=== PATIENT | female | born 1950 | race Hispanic/Latino ===

== ENCOUNTER 2024-08-12 13:22 | Emergency (ER) | payer SELFPAY ==
[2024-08-12 13:38] VITALS: BP 142/50; PULSE 80; RESP 16; TEMP 36.6; O2SAT 95
[2024-08-12 13:48] LABS: Glucose Point of Care 374 mg/dl (65-105)
--- NOTE | 2024-08-12 13:57 | ED.GENADULT ---
HPI - General Adult General Chief complaint: Unspecified Stated complaint: High Glucose Time Seen by Provider: 08/12/24 13:57 Source: patient, RN notes reviewed, old records reviewed and group work program director Mode of arrival: ambulatory Limitations: no limitations History of Present Illness HPI narrative: 74-year-old female presents to the [facility] with family. History of hypertension and diabetes. Reports using insulin, 20 units approximately 1:00 p.m. Unsure of what type of insulin. Family member reports through the group work program director service that she has had a decreased appetite, increased sleeping. Uncontrolled blood sugars consistently in the 300s since . Reports intermittent headaches. In clinic blood sugar is 374 Onset (ago): day(s) (4) Related Data Home Medications Medication Instructions Recorded Confirmed Last Taken Type Unable to Obtain Home Medications 08/12/24 08/12/24 Unknown History Review of Systems Review of Systems: All systems reviewed & are unremarkable except as noted in HPI and below Constitutional: Constitutional: Reports as per HPI, Reports body ache(s), Reports fatigue, Reports headache(s), Reports lethargy and Reports poor appetite ENT: Reports system reviewed and no additional complaints, except as documented Cardiovascular: Cardiovascular: Reports no additional cardiovascular complaints, Denies chest pain and Denies dyspnea Respiratory: Respiratory: Reports no additional respiratory complaints, Denies chest congestion, Denies cough and Denies dyspnea Gastrointestinal: Gastrointestinal: Reports as per HPI, Reports abdominal pain, Reports diarrhea, Reports nausea and Reports vomiting Genitourinary: Genitourinary: Reports no additional female genitourinary complaints Musculoskeletal: Musculoskeletal: Reports no additional musculoskeletal complaints Integumentary/Breasts: Skin/Breast: Reports system reviewed and no additional complaints, except as docu PMFSH Past Medical History Medical History (Updated 08/12/24 @ 14:19 by Jeannette Garcia APRN) Diabetes Hypertension Comments At the time of my signature, I reviewed and agree with the nursing past medical, surgical, social, and family history. There is no relevant family history pertinent to the patient complaint. Exam Const: General: cooperative, no acute distress, well developed, alert, ill appearing chronically, uncomfortable and well nourished Nutritional Appearance: well nourished Orientation/consciousness: patient oriented x3 Limitations: no limitations HENMT: Head: normal to inspection Eyes: General: appearance normal, both eyes and all related structures Alignment and Position: alignment normal Neck: Neck: normal visual inspection, full ROM, no lymphadenopathy and no meningeal signs Chest: Chest palpation & inspection: normal inspection of the chest Resp: Effort & Inspection: normal respiratory effort and able to speak in complete sentences Auscultation: clear to auscultation bilaterally, no crackles, no rales, no rhonchi and no wheezes Cardio: Rate: regular rate GI: GI Palp: Yes abdominal tenderness Auscultation: Hypoactive bowel sounds present : General: Yes no CVA tenderness Skin: General skin exam: normal color and no rashes or lesions noted Neuro: General: patient oriented x3, gait normal, moves all extremities and no meningeal signs Cognition (Neuro): normal cognition Speech: normal speech Gait exam (Neuro): Normal gait present Extrem: General: normal to inspection, full ROM, capillary refill normal and normal gait Psych: Appearance: grossly normal and well kempt Mental Status: mental status grossly normal Speech and movement: Normal speech and movement present and Clear speech present Affect: normal affect Attitude: cooperative Course Course Level of Care: Express Care Visit Vital Signs Vital signs: Vital Signs Temperature 97.8 F 08/12/24 13:38 Pulse Rate 80 08/12/24 13:38 Respiratory Rate 16 08/12/24 13:38 Blood Pressure 142/50 H 08/12/24 13:38 Pulse Oximetry 95 08/12/24 13:38 Oxygen Delivery Room Air 08/12/24 13:38 Temperature 97.8 F 08/12/24 13:38 Pulse Rate 80 08/12/24 13:38 Respiratory Rate 16 08/12/24 13:38 Blood Pressure 142/50 H 08/12/24 13:38 Pulse Oximetry 95 08/12/24 13:38 Oxygen Delivery Room Air 08/12/24 13:38 Reviewed Transfer Transfered to: [facility] Transportation: Other (POC per patient family request) Transfer rationale: Patient with 4 day history of abdominal pain, nausea vomiting diarrhea as well as elevated blood sugars sending for higher level of care Accepting physician: Spoke with Dr Nolen Medical Decision Making [facility] Narrative Medical decision making narrative: Patient sitting in exam room. Patient is uncomfortable in appearance. Blood sugar elevated, blood pressure mildly elevated. Four day history of abdominal pain. Patient is chronically ill in appearance. Patient with abdominal pain on palpation sending for higher level of care Transfer instructions reviewed via machine setup operator with patient and daughter in-law. Go directly to the ER. Do not eat or drink. EMS was offered, they declined All questions have been answered, and the patient deny any further questions. Some parts of this dictation were generated by voice recognition software and may contain typographical and/or grammatical inaccuracies. Differential Diagnosis Differential Diagnosis: DKA, gastroenteritis, pancreatitis, kidney disease. CHF Medical Records Medical records reviewed: Yes I reviewed the external patient's medical records. Vital Signs Vital Signs: Vital Signs Temperature 97.8 F 08/12/24 13:38 Pulse Rate 80 08/12/24 13:38 Respiratory Rate 16 08/12/24 13:38 Blood Pressure 142/50 H 08/12/24 13:38 Pulse Oximetry 95 08/12/24 13:38 Oxygen Delivery Room Air 08/12/24 13:38 Temperature 97.8 F 08/12/24 13:38 Pulse Rate 80 08/12/24 13:38 Respiratory Rate 16 08/12/24 13:38 Blood Pressure 142/50 H 08/12/24 13:38 Pulse Oximetry 95 08/12/24 13:38 Oxygen Delivery Room Air 08/12/24 13:38 Reviewed Lab Data Lab results reviewed: Yes I reviewed the patient's lab results. Labs: Lab Results 08/12/24 Range/Units 13:46 POC Capillary Glucose 374 H (65-105) mg/dl Reviewed Critical Care Time Critical Care Time Critical Care Time: No Discharge Plan Discharge Clinical Impression: Abdominal pain, Elevated blood sugar Patient Disposition: Acute Care Hospital Condition: Stable Patient Language: Amharic Follow-up/Referrals: UNKNOWN,DOCTOR [Primary Care Provider] -
== END 2024-08-12 14:11 | disposition short-term general hospital (02) ==
PROVIDERS: Emergency Provider Nurse Practitioner
DX: R10.9 Unspecified abdominal pain (principal); E11.65 Type 2 diabetes mellitus with hyperglycemia; I10 Essential (primary) hypertension
CPT/HCPCS: 82948; 99202; G0463

== ENCOUNTER 2024-08-12 14:43 | Emergency (ER) | payer SELFPAY ==
--- NOTE | ~2024-08-12 | CT_ITS ---
EXAMINATION: CT abdomen pelvis w con DATE: 08/12/2024 18:22 INDICATION: mild LFT elevations; low abd/pelvic pain TECHNIQUE: Computed tomography (CT) of the abdomen and pelvis was performed with 100 mL Omnipaque-350 intravenous contrast. Automated exposure control and iterative reconstruction technique were employe d. The dose-length product was 577.26 mGy-cm. COMPARISON: None. FINDINGS: Lower thorax: 5 mm peripheral right middle lobe nodule. Coronary artery calcifications. Liver: Mildly enlarged. Mild diffuse fatty infiltration Biliary/Gallbladder: Gallbladder is normal. No bile duct dilation. Pancreas: No mass or duct dilation. Spleen: Subcentimeter hypodensity, too small to characterize, likely cyst or hemangioma. Adrenals:No mass. Kidneys: No suspicious mass, obstructing stone, or hydronephrosis. Ill-defined area of patchy hypoenh ancement in the right mid and upper poles. GI tract: Small hiatal hernia. Mild distal esophageal and gastric wall edema. No small or large bowel dilation. Normal appendix. Diverticulosis without diverticulitis. Mesentery/Peritoneum: No ascites, mass, or free air. Retroperitoneum: No mass. Atherosclerotic calcifications of intra-abdominal arterial vessels. Pelvis: Mild urinary bladder wall thickening. Normal uterus and bilateral ovaries. Soft Tissues: Small fat-containing uncomplicated appearing umbilical hernia. Bones: No acute osseous finding. Chronic-appearing burst fracture at T12, with minimal retropulsion. IMPRESSION: 5 mm peripheral right middle lobe nodule. Recommend comparison to outside studies if available. Other suarez recommend nonemergent, outpatient low-dose noncontrast CT of the chest for further evaluation. Mild esophagitis/gastritis. Mild hepatomegaly and steatosis. Patchy right renal enhancement as can be seen with pyelonephritis. Possible cystitis. Reviewed, dictated and finalized at location K. IMPRESSION: 5 mm peripheral right middle lobe nodule. Recommend comparison to outside studi es if available. Otherwise recommend nonemergent, outpatient low-dose noncontra st CT of the chest for further evaluation. Mild esophagitis/gastritis. Mild hepatomegaly and steatosis. Patchy right renal enhancement as can be seen with pyelonephritis. Possible cys titis.
[2024-08-12 14:48] VITALS: BP 136/72; PULSE 72; RESP 16; TEMP 36.1; O2SAT 96
--- NOTE | 2024-08-12 15:07 | ED.ABDPAIN ---
HPI - Abdominal Pain General Chief Complaint: Abdominal Pain <Genna Marie PA-C - Last Filed: 08/14/24 17:56> Stated Complaint: BGL 344, abd pain sent by <Genna Marie PA-C - Last Filed: 08/14/24 17:56> Time Seen by Provider: 08/12/24 15:07 <Genna Marie PA-C - Last Filed: 08/14/24 17:56> Focused HPI: This is a 74 year old female that presents to the ER for elevated blood sugar readings. Reports abdominal pain and headaches. Reports nausea and vomiting. Denies fever, dysuria. GENERAL: Elderly, well-nourished, and in no acute distress. HEAD: Normocephalic, atraumatic. CHEST: Clear to auscultation. No respiratory distress. HEART: Regular rate and rhythm. NEURO: Alert and oriented x3. Patient screened in triage and initial orders placed. Additional care and disposition to be based upon diagnostic testing and treatment. <Genna Marie PA-C - Last Filed: 08/14/24 17:56> Source: patient and family (Daughter) <Mily Nolen MD - Last Filed: 08/12/24 20:08> Mode of arrival: ambulatory <Mily Nolen MD - Last Filed: 08/12/24 20:08> Limitations: language barrier (Nigerien speaking (no Indonesian); right of way clearer Trini #[id number]) <Mily Nolen MD - Last Filed: 08/12/24 20:08> History of Present Illness HPI narrative: Agree with the above with the following additions/corrections: Patient been having low abdominal pain and feeling bloated. She has been incontinent of urine initially requiring a brief QHS but now being used throughout the day as precaution. She has been feeling weak but thirsty. She is initially seen at urgent care and I had received history from them earlier in the day. Patient is on medication for hypertension she is also on insulin which he takes 20 units in the morning and 20 units in the afternoon. Her last dose was taken this afternoon between 12 30 and 1:00 p.m.. She has had decreased p.o. intake. She is visiting from [place] and is due to go back August 24, 2024. No previous abdominal surgeries. Denies any fevers or chills. Her last bowel movement was today and she denies any diarrhea constipation or bloody stools. No vaginal discharge or bleeding. She had 2 episodes of nonbloody emesis 2 days ago and yesterday was nauseated. Her last oral intake was yesterday evening. Does not currently have an appetite. No sick contacts. <Mily Nolen MD - Last Filed: 08/12/24 20:08> Related Data Allergies/Adverse Reactions: Allergies Allergy/AdvReac Type Severity Reaction Status Date / Time No Known Allergies Allergy Verified 08/12/24 14:44 <Genna Marie PA-C - Last Filed: 08/14/24 17:56> Review of Systems Review of Systems: All systems reviewed & are unremarkable except as noted in HPI and below <Genna Marie PA-C - Last Filed: 08/14/24 17:56> [facility] Past Medical History Medical History: Medical History Insulin dependent diabetes mellitus Hypertension <Genna Marie PA-C - Last Filed: 08/14/24 17:56> Social History Social History: Social History Social History: Nigerien speaking Additional living arrangements comments: in [place] <Genna Marie PA-C - Last Filed: 08/14/24 17:56> Exam Narrative: GENERAL: well-nourished, and in no acute distress. HEAD: Normocephalic, atraumatic. EYES: Non injected, non icteric ENT: Nares clear, no rhinorrhea or epistaxis. NECK: Supple. CHEST: No respiratory distress. HEART: Regular rate and rhythm. . ABDOMEN: Soft, nondistended. Mild suprapubic tenderness to palpation but otherwise is not elsewhere throughout abdomen. No rigidity or guarding. Not peritoneal. EXTREMITIES: Normal range of motion. No lower extremity edema. SKIN: Warm, dry, no rash. NEURO: No focal deficits. Alert and oriented . PSYCH: Normal mood and affect. <Mily Nolen MD - Last Filed: 08/12/24 20:08> Course Vital Signs Vital signs: Vital Signs Temperature 97.0 F L 08/12/24 14:48 Pulse Rate 72 08/12/24 14:48 Respiratory Rate 16 08/12/24 14:48 Blood Pressure 136/72 08/12/24 14:48 Pulse Oximetry 96 08/12/24 14:48 Temperature 97.0 F L 08/12/24 14:48 Pulse Rate 83 08/12/24 20:00 Respiratory Rate 20 08/12/24 20:00 Blood Pressure 166/89 H 08/12/24 20:00 Pulse Oximetry 95 08/12/24 20:00 <Genna Marie PA-C - Last Filed: 08/14/24 17:56> Vital Signs Temperature 97.0 F L 08/12/24 14:48 Pulse Rate 72 08/12/24 14:48 Respiratory Rate 16 08/12/24 14:48 Blood Pressure 136/72 08/12/24 14:48 Pulse Oximetry 96 08/12/24 14:48 Temperature 97.0 F L 08/12/24 14:48 Pulse Rate 83 08/12/24 20:00 Respiratory Rate 20 08/12/24 20:00 Blood Pressure 166/89 H 08/12/24 20:00 Pulse Oximetry 95 08/12/24 20:00 <Mily Nolen MD - Last Filed: 08/12/24 20:08> MDM - Abdominal Pain MDM Narrative Medical decision making narrative: In the emergency department she is afebrile with vital signs within normal limits. Hyperglycemia is without anion gap acidosis. 1 L IV fluids ordered for this as well as the fact that patient has an elevated creatinine with no prior for comparison, likely due to DUNCAN though CKD (especially given underlying diabetes mellitus) not excluded. Mild AST and ALT elevations. Patient is hypokalemic. Oral repletion ordered. Pseudo hyponatremia (138/141) as it corrects to normal in the setting of hyperglycemia. She has evidence of your urinary tract infection. Ceftriaxone ordered initially. Leukocytosis. CT as below. Discussed the results of patient's workup with patient and daughter at bedside using interpretive services, Vick # [id number]. Stress the importance of maintaining hydration, taking rest the course of antibiotics, and good glycemic control. Informed about the incidental pulmonary nodule. Patient has tolerated p.o.. Discussed the possibility of admission but patient and daughter feel comfortable confident that she can be discharged on oral antibiotics. Advised to return if any new worsening or unmanaged symptoms. Stable for discharge. <Mily Nolen MD - Last Filed: 08/12/24 20:08> Differential Diagnosis Differential diagnosis: Likely abdominal pain, constipation, pancreatitis and other (Hyperglycemia, DKA, HHS; intra-abdominal/intrauterine infection) <Mily Nolen MD - Last Filed: 08/12/24 20:08> Lab Data Attestation: I reviewed the patient's lab results. <Mily Nolen MD - Last Filed: 08/12/24 20:08> Lab results narrative: Viral panel negative <Mily Nolen MD - Last Filed: 08/12/24 20:08> Result diagrams: 08/12/24 16:23 08/12/24 16:23 <Genna Marie PA-C - Last Filed: 08/14/24 17:56> Labs: Lab Results 08/12/24 08/12/24 Range/Units 16:23 18:03 WBC 16.3 H (4.5-10.0) K/mm3 RBC 4.79 (4.2-5.4) M/mm3 Hgb 13.9 (12.0-15.0) g/dL Hct 40.7 (37.0-47.0) % MCV 85.0 (80-100) fl MCH 29.0 (26-34) pg MCHC 34.2 (32-36) g/dl RDW 12.5 (11.5-14.5) % Plt Count 193 (150-375) k/mm3 MPV 11.7 H (7.4-10.4) fl Immature Gran % (Auto) Not Reportable Neut % (Auto) Not Reportable Lymph % (Auto) Not Reportable [place] % (Auto) Not Reportable Eos % (Auto) Not Reportable Baso % (Auto) Not Reportable Lymph # (Auto) Not Reportable [place] # (Auto) Not Reportable Eos # (Auto) Not Reportable Baso # (Auto) Not Reportable Abs Immat Gran (auto) Not Reportable Absolute Neuts (auto) Not Reportable Absolute Nucleated RBC Not Reportable Total Counted 100 Neutrophils % (Manual) 89 H (46-73) % Band Neutrophils % 5 (0-6) % Lymphocytes % (Manual) 3.0 L (18-44) % Monocytes % (Manual) 3 (3-9) % Nucleated RBC % Not Reportable Abs Neuts (Manual) 15.32 H (1.7-7.2) K/mm3 Abs Lymphs (Manual) 0.48 L (1.1-4.5) K/mm3 Abs Monocytes (Manual) 0.48 (0.1-0.90) K/mm3 Platelet Estimate Adequate (Adequate) Schistocytes None seen Sodium 134 L (137-145) mmol/L Potassium 3.1 L (3.4-5.0) mmol/L Chloride 91 L (98-107) mmol/L Carbon Dioxide 31 H (22-30) mmol/L Anion Gap 12 (4-12) mmol/L BUN 45 H (7-17) mg/dL Creatinine 1.19 H (0.7-1.0) mg/dL Estim Creat Clear Calc Not Reportable Estimated GFR 44 L (59 - ) Glucose 371 H (65-110) mg/dL Calcium 8.9 (8.4-10.2) mg/dL Magnesium 2.2 (1.6-2.3) mg/dL Total Bilirubin 1.2 (0.2-1.3) mg/dL AST 42 H (14-36) U/L ALT 39 H (6-35) U/L Alkaline Phosphatase 123 (38-126) U/L Total Protein 7.0 (6.3-8.2) g/dL Albumin 3.5 (3.5-5.1) g/dL Lipase 25 (23-300) U/L Urine Color Yellow (Yellow) Urine Appearance Turbid H (Clear) Urine pH 5.5 (5.0-9.0) Ur Specific [place] 1.017 (1.001-1.035) Urine Protein 2+ H (Negative) mg/dL Urine Glucose (UA) 1+ H (Negative) mg/dL Urine Ketones 1+ H (Negative) mg/dL Ur Blood (Man) 1+ H (Negative) Urine Nitrate Negative (Negative) Urine Bilirubin Negative (Negative) Urine Urobilinogen 1.0 (<2.0) mg/dL Leukocyte Esterase Rfl 3+ H (Negative) AMY/UL Urine RBC 0-2 (0-2) /hpf Urine WBC >100 H (0-3) /hpf Ur Squamous Epith Cells Few (Few) /hpf Urine Bacteria 4+ H /hpf Urine Casts 3-5 Influenza A (RT-PCR) Negative (Negative) Influenza B (RT-PCR) Negative (Negative) SARS-CoV-2 RNA (RT-PCR) Negative (Negative) <Genna Marie PA-C - Last Filed: 08/14/24 17:56> Lab Results 08/12/24 08/12/24 Range/Units 16:23 18:03 WBC 16.3 H (4.5-10.0) K/mm3 RBC 4.79 (4.2-5.4) M/mm3 Hgb 13.9 (12.0-15.0) g/dL Hct 40.7 (37.0-47.0) % MCV 85.0 (80-100) fl MCH 29.0 (26-34) pg MCHC 34.2 (32-36) g/dl RDW 12.5 (11.5-14.5) % Plt Count 193 (150-375) k/mm3 MPV 11.7 H (7.4-10.4) fl Immature Gran % (Auto) Not Reportable Neut % (Auto) Not Reportable Lymph % (Auto) Not Reportable [place] % (Auto) Not Reportable Eos % (Auto) Not Reportable Baso % (Auto) Not Reportable Lymph # (Auto) Not Reportable [place] # (Auto) Not Reportable Eos # (Auto) Not Reportable Baso # (Auto) Not Reportable Abs Immat Gran (auto) Not Reportable Absolute Neuts (auto) Not Reportable Absolute Nucleated RBC Not Reportable Total Counted 100 Neutrophils % (Manual) 89 H (46-73) % Band Neutrophils % 5 (0-6) % Lymphocytes % (Manual) 3.0 L (18-44) % Monocytes % (Manual) 3 (3-9) % Nucleated RBC % Not Reportable Abs Neuts (Manual) 15.32 H (1.7-7.2) K/mm3 Abs Lymphs (Manual) 0.48 L (1.1-4.5) K/mm3 Abs Monocytes (Manual) 0.48 (0.1-0.90) K/mm3 Platelet Estimate Adequate (Adequate) Schistocytes None seen Sodium 134 L (137-145) mmol/L Potassium 3.1 L (3.4-5.0) mmol/L Chloride 91 L (98-107) mmol/L Carbon Dioxide 31 H (22-30) mmol/L Anion Gap 12 (4-12) mmol/L BUN 45 H (7-17) mg/dL Creatinine 1.19 H (0.7-1.0) mg/dL Estim Creat Clear Calc Not Reportable Estimated GFR 44 L (59 - ) Glucose 371 H (65-110) mg/dL Calcium 8.9 (8.4-10.2) mg/dL Magnesium 2.2 (1.6-2.3) mg/dL Total Bilirubin 1.2 (0.2-1.3) mg/dL AST 42 H (14-36) U/L ALT 39 H (6-35) U/L Alkaline Phosphatase 123 (38-126) U/L Total Protein 7.0 (6.3-8.2) g/dL Albumin 3.5 (3.5-5.1) g/dL Lipase 25 (23-300) U/L Urine Color Yellow (Yellow) Urine Appearance Turbid H (Clear) Urine pH 5.5 (5.0-9.0) Ur Specific [place] 1.017 (1.001-1.035) Urine Protein 2+ H (Negative) mg/dL Urine Glucose (UA) 1+ H (Negative) mg/dL Urine Ketones 1+ H (Negative) mg/dL Ur Blood (Man) 1+ H (Negative) Urine Nitrate Negative (Negative) Urine Bilirubin Negative (Negative) Urine Urobilinogen 1.0 (<2.0) mg/dL Leukocyte Esterase Rfl 3+ H (Negative) AMY/UL Urine RBC 0-2 (0-2) /hpf Urine WBC >100 H (0-3) /hpf Ur Squamous Epith Cells Few (Few) /hpf Urine Bacteria 4+ H /hpf Urine Casts 3-5 Influenza A (RT-PCR) Negative (Negative) Influenza B (RT-PCR) Negative (Negative) SARS-CoV-2 RNA (RT-PCR) Negative (Negative) <Mily Nolen MD - Last Filed: 08/12/24 20:08> Imaging Data Radiologist's impression: ITS Impressions Abdomen/Pelvis CT 08/12/24 18:30 IMPRESSION: 5 mm peripheral right middle lobe nodule. Recommend comparison to outside studies if available. Otherwise recommend nonemergent, outpatient low-dose noncontrast CT of the chest for further evaluation. Mild esophagitis/gastritis. Mild hepatomegaly and steatosis. Patchy right renal enhancement as can be seen with pyelonephritis. Possible cystitis. <Genna Marie PA-C - Last Filed: 08/14/24 17:56> ITS Impressions Abdomen/Pelvis CT 08/12/24 18:30 IMPRESSION: 5 mm peripheral right middle lobe nodule. Recommend comparison to outside studies if available. Otherwise recommend nonemergent, outpatient low-dose noncontrast CT of the chest for further evaluation. Mild esophagitis/gastritis. Mild hepatomegaly and steatosis. Patchy right renal enhancement as can be seen with pyelonephritis. Possible cystitis. <Mily Nolen MD - Last Filed: 08/12/24 20:08> Critical Care Time Critical Care Time Critical Care Time: No <Genna Marie PA-C - Last Filed: 08/14/24 17:56> Discharge Plan Discharge Clinical Impression: Hyperglycemia due to diabetes mellitus, Elevated AST (SGOT), ALT (SGPT) level raised, DUNCAN (acute kidney injury), Abdominal pain in female, Hypokalemia, Pseudohyponatremia, Right middle lobe pulmonary nodule, Esophagitis with gastritis, Hepatomegaly, Hepatic steatosis, Pyelonephritis UTI (urinary tract infection) Qualifiers: Urinary tract infection type: acute cystitis Hematuria presence: without hematuria Qualified Code(s): N30.00 - Acute cystitis without hematuria Leukocytosis Qualifiers: Leukocytosis type: unspecified Qualified Code(s): D72.829 - Elevated white blood cell count, unspecified <Genna Marie PA-C - Last Filed: 08/14/24 17:56> Patient Disposition: Home <CAMERON Dodd Last Filed: 08/14/24 17:56> Condition: Stable <CAMERON Dodd Last Filed: 08/14/24 17:56> Instructions: Antibiotic Form, Gastritis (DC), Acute Kidney Injury (DC), Urinary Tract Infection in Women (DC), Hypokalemia (ED), Kidney Infection (ED), Managing Diabetes During Sick Days (ED), Non-Alcoholic Fatty Liver Disease (ED), Pulmonary Nodules (ED), Diabetic Hyperglycemia (ED), Esophagitis (ED) <Genna Marie PA-C - Last Filed: 08/14/24 17:56> Additional Instructions: She has a urinary tract infection that appears to have traveled up and become a kidney infection. She received the first dose of antibiotic in the emergency department the rest of the course has been prescribed. The oral disintegrating tablets of Zofran can help nausea and vomiting and the omeprazole can also help with stomach issues. It is important to continue to take your medications including insulin as prescribed to manage your blood sugars for the reasons we talked about. Maintain your hydration by drinking plenty of water. You can drink Gatorade/Pedialyte if you would like. Incidentally, a pulmonary nodule was found. Recommend comparison to outside studies if available. Otherwise recommend nonemergent, outpatient low-dose noncontrast CT of the chest for further evaluation. Follow-up with your primary care physician when you return to [place]. If you end up having to remain in the country, a doctor is listed below. Return to the emergency department if new/worsening symptoms. <Genna Marie PA-C - Last Filed: 08/14/24 17:56> Patient Language: Nigerien <Genna Marie PA-C - Last Filed: 08/14/24 17:56> Prescriptions: New omeprazole 20 mg tablet,delayed release (DR/EC) 20 mg PO DAILY Qty: 14 0RF ondansetron 4 mg tablet,disintegrating 4 mg PO Q8H PRN (Reason: nausea and vomiting) Qty: 7 0RF cephalexin 500 mg capsule 500 mg PO Q6H 10 Days Qty: 40 0RF Rx Instructions: start 08/13/24 <Genna Marie PA-C - Last Filed: 08/14/24 17:56> Follow-up/Referrals: Scotty Bryson MD [Physician] - UNKNOWN,DOCTOR [Primary Care Provider] - <Genna Marie PA-C - Last Filed: 08/14/24 17:56> Time of Disposition: 19:24 <Genna Marie PA-C - Last Filed: 08/14/24 17:56> 19:24 <Mily Nolen MD - Last Filed: 08/12/24 20:08>
[2024-08-12 16:16] VITALS: PULSE 70; RESP 23
[2024-08-12 16:18] VITALS: BP 160/58; PULSE 75; RESP 27; O2SAT 94
[2024-08-12 16:31] LABS: Hematocrit 40.7 % (37.0-47.0); Hemoglobin 13.9 g/dL (12.0-15.0); Mean Corpuscular HGB Conc 34.2 g/dl (32-36); Mean Platelet Volume 11.7 fl (7.4-10.4); Platelet Count Result 193 k/mm3 (150-375); Red Blood Count 4.79 M/mm3 (4.2-5.4); Red Cell Distribution Width 12.5 % (11.5-14.5); White Blood Count 16.3 K/mm3 (4.5-10.0)
[2024-08-12 16:37] LABS: Add Urine Microscopic? YES; Appearance Urine Turbid (Clear); Bacteria Urine 4+ /hpf; Bilirubin Urine Negative (Negative); Blood Urine 1+ (Negative); Color Urine Yellow (Yellow); Glucose Urine UA 1+ mg/dL (Negative); Ketones Urine 1+ mg/dL (Negative); Leukocyte Esterase Ur 3+ LEU/UL (Negative); Nitrate Urine Negative (Negative); Protein Urine 2+ mg/dL (Negative); RBC Urine 0-2 /hpf (0-2); Specific Grav Ur 1.017 (1.001-1.035); Squamous Epithelial Cell Urine Few /hpf (Few); WBC Urine >100 /hpf (0-3); pH Urine 5.5 (5.0-9.0)
[2024-08-12 16:40] LABS: Alanine Aminotransferase 39 U/L (6-35); Albumin Level 3.5 g/dL (3.5-5.1); Alkaline Phosphatase 123 U/L (38-126); Anion Gap 12 mmol/L (4-12); Aspartate Amino Transferase 42 U/L (14-36); Bilirubin,Total 1.2 mg/dL (0.2-1.3); Blood Urea Nitrogen 45 mg/dL (7-17); Calcium 8.9 mg/dL (8.4-10.2); Carbon Dioxide 31 mmol/L (22-30); Chloride 91 mmol/L (98-107); Estimated Glomerular Filt Rate 44; Glucose 371 mg/dL (65-110); Lipase 25 U/L (23-300); Potassium 3.1 mmol/L (3.4-5.0); Sodium 134 mmol/L (137-145)
[2024-08-12 17:00] LABS: Band Neutrophils Percent 5 % (0-6); Lymphocytes Absolute Manual 0.48 K/mm3 (1.1-4.5); Monocytes Absolute Manual 0.48 K/mm3 (0.1-0.90); Monocytes Percent Manual 3 % (3-9); Neutrophils Absolute Manual 15.32 K/mm3 (1.7-7.2); Neutrophils Percent Manual 89 % (46-73); Platelet Estimate Adequate (Adequate); Total Cells Counted 100
[2024-08-12 17:01] LABS: Schistocytes None Seen
[2024-08-12] MEDS: SODIUM CHLORIDE 0.9% IV 1,000 ML 999 ML IV CONT (17:44)
[2024-08-12 17:46] VITALS: BP 145/60; PULSE 71; RESP 20; O2SAT 94
[2024-08-12] MEDS: MORPHINE SULFATE (*CRX) 2 MG/ML INJ IV PUSH (18:03)
[2024-08-12] MEDS: POTASSIUM BICARBONATE 25 MEQ TABEF 50 MEQ PO (18:06)
[2024-08-12 18:30] VITALS: BP 190/64; PULSE 80; RESP 21; O2SAT 95
[2024-08-12 18:45] LABS: Influenza A QL RT-PCR Negative (Negative); Influenza B QL RT-PCR Negative (Negative); SARS-CoV-2 RNA PCR Negative (Negative)
[2024-08-12] MEDS: PANTOPRAZOLE 40 MG TABLET PO (19:28)
[2024-08-12 20:00] VITALS: BP 166/89; PULSE 83; RESP 20; O2SAT 95
[2024-08-12 20:14] LABS: Magnesium 2.2 mg/dL (1.6-2.3)
== END 2024-08-12 20:29 | disposition home or self-care (01) ==
PROVIDERS: Physician Assistant; Emergency Provider Student in an Organized Health Care Education/Training Program
DX: E11.65 Type 2 diabetes mellitus with hyperglycemia (principal); N17.9 Acute kidney failure, unspecified; N12 Tubulo-interstitial nephritis, not specified as acute or chronic; N30.00 Acute cystitis without hematuria; K20.90 Esophagitis, unspecified without bleeding; K29.70 Gastritis, unspecified, without bleeding; D72.829 Elevated white blood cell count, unspecified; E87.6 Hypokalemia; R74.01 Elevation of levels of liver transaminase levels; R91.1 Solitary pulmonary nodule; R16.0 Hepatomegaly, not elsewhere classified; K76.0 Fatty (change of) liver, not elsewhere classified; Z20.822 Contact with and (suspected) exposure to COVID-19; I10 Essential (primary) hypertension
CPT/HCPCS: 36415; 74177; 80053; 81001; 83690; 83735; 85025; 87086; 87186; 87636; 96361; 96365; 96375; 99284; A9270; J0696; J2270; J7030; Q9967